=== PATIENT | female | born 1985 | race Caucasian/White ===

== ENCOUNTER 2016-07-19 22:32 | Emergency (ER) | payer SELFPAY ==
[~2016-07-19] VITALS: Ht 180.3 cm; Wt 96.6 kg
[2016-07-19] MEDS ORDERED: ONDANSETRON ODT 4 MG ONE (23:07)
[2016-07-19] MEDS ORDERED: ONDANSETRON ODT 4 MG PO ONE (23:30)
[2016-07-19 23:47] VITALS: BP 104/75
== END 2016-07-19 23:52 | disposition home or self-care (01) ==
LOC: ED 23:30
DX: T50.905A Adverse effect of unspecified drugs, medicaments and biological substances, initial encounter (principal); R11.0 Nausea; Y92.9 Unspecified place or not applicable
CPT/HCPCS: 99283; Q0162

== ENCOUNTER 2017-03-11 02:52 | Emergency (ER) | payer SELFPAY ==
[~2017-03-11] VITALS: Ht 180.3 cm; Wt 86.3 kg
[2017-03-11 02:54] VITALS: BP 98/66
[2017-03-11] MEDS ORDERED: PROPARACAINE OPHTH 0.5%, 15ML ONE (02:55)
[2017-03-11] MEDS ORDERED: FLUORESCEIN OPHTHALMIC 1 MG STRIP ONE (02:55)
== END 2017-03-11 04:03 | disposition home or self-care (01) ==
LOC: ED 03:28
DX: T15.92XA Foreign body on external eye, part unspecified, left eye, initial encounter (principal); E03.9 Hypothyroidism, unspecified; X58.XXXA Exposure to other specified factors, initial encounter; Y93.89 Activity, other specified; Y99.8 Other external cause status; Y92.89 Other specified places as the place of occurrence of the external cause
CPT/HCPCS: 65222

== ENCOUNTER 2017-06-05 13:31 | Emergency (ER) | payer OTHER ==
[~2017-06-05] VITALS: Ht 180.3 cm; Wt 80.6 kg
[2017-06-05 13:32] VITALS: BP 124/83
[2017-06-05 14:28] LABS: RAPID INFLUENZA A Negative (Negative); RAPID INFLUENZA B Negative (Negative)
[2017-06-05] MEDS ORDERED: ONDANSETRON ODT 8 MG PO ONE (15:00)
[2017-06-05] MEDS ORDERED: ONDANSETRON ODT 4 MG ONE (15:13)
[2017-06-05] MEDS ORDERED: LEVO25TA4 PO (15:18)
[2017-06-05 15:30] LABS: HCG UR SG 1.022 (1.003-1.030); MICROSCOPIC NOT IND
[2017-06-05 15:33] LABS: CULTURE INDICATED? NO
== END 2017-06-05 16:06 | disposition home or self-care (01) ==
LOC: ED 14:43
DX: B34.9 Viral infection, unspecified (principal); E03.9 Hypothyroidism, unspecified
CPT/HCPCS: 71046; 81003; 81025; 87400; 99285; Q0162